=== PATIENT | female | born 1980 | race Caucasian/White ===

== ENCOUNTER → 2018-06-11 | Outpatient (CLI) | payer BC ==
[2018-06-11 10:04] LABS: ALT 35 U/L (9-52); AST 28 U/L (14-36); Albumin 4.2 g/dL (3.5-5.0); Alkaline Phosphatase 57 U/L (38-126); Anion Gap 7 mmol/L; Blood Urea Nitrogen 17 mg/dL (7-17); Calcium 9.1 mg/dL (8.4-10.2); Carbon Dioxide 28 mmol/L (22-30); Chloride 105 mmol/L (98-107); Cholesterol 222 mg/dL (<200); Glucose 119 mg/dL (74-99); HDL Cholesterol 49 mg/dL (40-60); LDL Cholesterol,Calculated 152 mg/dL (0-99); Potassium 4.2 mmol/L (3.5-5.1); Sodium 140 mmol/L (137-145); Total Bilirubin 0.8 mg/dL (0.2-1.3); Total Protein 6.9 g/dL (6.3-8.2); Triglycerides 105 mg/dL (<150)
[2018-06-11 10:23] LABS: T4, Free (Free Thyroxine) 0.85 ng/dL (0.78-2.19)
[2018-06-11 16:24] LABS: Parathyroid Hormone Intact 62.8 pg/mL (14.0-72.0)
[2018-06-11 19:54] LABS: C-Peptide 0.49 ng/mL (0.81-3.85)
== END | disposition home or self-care (01) ==
LOC: LABWHC1 09:26
PROVIDERS: ATTEND Internal Medicine Endocrinology, Diabetes & Metabolism
DX: E11.65 Type 2 diabetes mellitus with hyperglycemia (principal); N20.0 Calculus of kidney
CPT/HCPCS: 36415; 80053; 80061; 82533; 83970; 84439; 84443; 84681

== ENCOUNTER → 2020-12-01 | Outpatient (CLI) | payer BC ==
--- NOTE | 2020-12-02 06:44 | MR ---
MRI CERVICAL SPINE: CLINICAL HISTORY: Cervicalgia. Right shoulder and arm pain for 6 weeks. TECHNIQUE: Multiplanar, multisequence imaging of the cervical spine is performed without IV contrast. COMPARISON: None. FINDINGS: Sagittal images of the cervical spine show the craniocervical junction to appear within nor mal limits. The cervical and upper thoracic spinal cord is normal in caliber and signal. Loss of nor mal cervical curvature centered inferior C4 level with grade 1 retrolisthesis C4 on C5, C5 on C6, and C6 on C7. Moderate disc space narrowing C4-C5 level otherwise the vertebral body and intravertebral disk heights are normal. The bone marrow signal intensity is within normal limits. Axial images show C2-C3 level to appear within normal limits. Axial images at C3-C4 level show broad-based right paracentral spur disc complex effacing anterolater al thecal sac and causing asymmetric mild to moderate right-sided neural foraminal narrowing. Axial images at C4-C5 level showed spondylolisthesis and lobulated posterior disc protrusion effacing anterior thecal sac greatest right paracentral region and causing moderate to advanced right and mil d to moderate left-sided neural foraminal narrowing. Axial images at C5-C6 level show Broad based left paracentral/foraminal disc protrusion effacing the anterolateral thecal sac and causing moderate left greater than right bilateral neural foraminal narr owing. Axial images at C6-C7 and C7-T1 levels appear within normal limits. Occasional tiny T2 hyperintense nodule identified scattered throughout the thyroid gland. IMPRESSION: Loss of normal cervical curvature with multilevel fairly moderate degenerative changes C3 -C4 through C5-C6 level noted as detailed above.
== END | disposition home or self-care (01) ==
LOC: RADMRIMAIN 06:06
PROVIDERS: ATTEND Family Medicine
DX: M47.812 Spondylosis without myelopathy or radiculopathy, cervical region (principal); M53.82 Other specified dorsopathies, cervical region
CPT/HCPCS: 72141

== ENCOUNTER → 2021-06-14 | Outpatient (CLI) | payer BC ==
--- NOTE | 2021-06-14 11:26 | XR ---
EXAMINATION TYPE: XR cervical spine w flex/ext DATE OF EXAM: 06/14/2021 COMPARISON: NONE HISTORY: Pain TECHNIQUE: Five views are submitted including flexion-extension lateral views. FINDINGS: The odontoid is intact. There are no compression deformities. The prevertebral soft tissue structur es are within normal limits. There is mild narrowing and hypertrophic change involving the C4-C5 dis c space. Alignment is similar in flexion and extension views. Soft tissue calcification posteriorly. IMPRESSION: 1. Hypertrophic and degenerative change C4-C5 consider MRI.
== END | disposition home or self-care (01) ==
LOC: RADXRMAIN 10:49
PROVIDERS: ATTEND Pain Medicine Interventional Pain Medicine
DX: M47.812 Spondylosis without myelopathy or radiculopathy, cervical region (principal)
CPT/HCPCS: 72052

== ENCOUNTER → 2022-05-09 | Outpatient (CLI) | payer BC ==
--- NOTE | 2022-05-10 10:04 | MM ---
Reason for Exam: Screening (asymptomatic). Patient History: Menarche at age 10. First Full-Term at age 30. Late child-bearing (after 30). Risk Values: Tamia 5 year model risk: 1.0%. NCI Lifetime model risk: 14.6%. Tissue Density: The breast tissue is heterogeneously dense. This may lower the sensitivity of mammography. Findings: Analyzed By CAD. Nodular density in the far upper outer left breast likely reflects an intramammary lymph node however this should be confirmed with ultrasound. No additional nodules seen. No suspicious calcifications. Overall Assessment: Incomplete: need additional imaging evaluation, BI-RAD 0 Management: Diagnostic Breast Ultrasound of the left breast. A clinical breast exam by your physician is recommended on an annual basis and results should be correlated with mammographic findings. Electronically signed and approved by: Alonzo Alexander M.D. Radiologis
== END | disposition home or self-care (01) ==
LOC: RADMAMWWP 07:55
PROVIDERS: ATTEND Family Medicine
DX: Z12.31 Encounter for screening mammogram for malignant neoplasm of breast (principal)
CPT/HCPCS: 77063; 77067

== ENCOUNTER → 2022-05-12 | Outpatient (CLI) | payer BC ==
--- NOTE | 2022-05-12 08:10 | USB ---
Patient History: Menarche at age 10. First Full-Term at age 30. Late child-bearing (after 30). Risk Values: Tamia 5 year model risk: 1.0%. NCI Lifetime model risk: 14.6%. Technique: Method: Targeted. Prior Study Comparison: 05/09/2022 Bilateral MG 3D screening mammo w/cad, [facility]. Findings: The upper outer quadrant of the left breast, the axilla of the left breast and the retroareolar of the left breast were scanned. Intramammary lymph node is confirmed. No suspicious for a solid or cystic masses.. Overall Assessment: Benign, BI-RAD 2 Management: Screening Mammogram of both breasts in 1 year. A clinical breast exam by your physician is recommended on an annual basis and results should be correlated with mammographic findings. Electronically signed and approved by: Alonzo Alexander M.D. Radiologis
== END | disposition home or self-care (01) ==
LOC: RADUSWWP 07:40
PROVIDERS: ATTEND Family Medicine
DX: R92.8 Other abnormal and inconclusive findings on diagnostic imaging of breast (principal)